=== PATIENT | female | born 1980 | race African-American/Black ===

== ENCOUNTER 2019-03-01 10:20 | Emergency (ER) | payer OTHER ==
[~2019-03-01] VITALS: Ht 167.6 cm; Wt 99.8 kg
[~2019-03-01 10:20] MED LIST: ADVAIR HFA 230M12 GM INH; ALBUTEROL2.5 MG/0.5 INH; IBUPROFEN 600600 M1 PO; MOBIC15 MG PO; PENICILLIN V P500 MG PO
[2019-03-01] MEDS ORDERED: ADVAIR 250-501 EACH INH (10:40)
[2019-03-01] MEDS ORDERED: PROAIR HFA8.5 GM INH (13:02)
[2019-03-01] MEDS ORDERED: WIXELA 100-501 EACH INH (13:02)
[2019-03-01] MEDS ORDERED: ALBUTEROL2.5 MG/31 INH (13:02)
[2019-03-01] MEDS ORDERED: PREDNISONE 20 M20 MG PO (13:06)
[2019-03-01 13:29] VITALS: BP 135/74
--- NOTE | 2019-03-02 10:08 | EKG ---
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 03/02/19 1008 1028 1028 Meet Altman MD, FACC /EPI
== END 2019-03-01 13:35 | disposition home or self-care (01) ==
LOC: ER 10:20
DX: J45.901 Unspecified asthma with (acute) exacerbation (principal); R07.89 Other chest pain; R42 Dizziness and giddiness; R51 Headache; Z87.891 Personal history of nicotine dependence